=== PATIENT | female | born 1990 | race Caucasian/White ===

== ENCOUNTER → 2021-01-30 12:12 | Observation (INO) ==
[2021-01-30 09:46] LABS: Bacteria,Urine Few per hpf (None-Few); Bilirubin,Urine Negative (Negative); Blood,Urine Negative (Negative); Clarity,Urine Turbid (Clear); Color,Urine Yellow (Yellow); Glucose,Urine (UA) Normal (Normal); Ketones,Urine 10 mg/dL (Negative); Leukocyte Esterase,Urine Small (Negative); Mucus,Urine Many per lpf (None-Few); Nitrite,Urine Negative (Negative); Protein,Urine 100 mg/dL (Neg-Trace); Specific Gravity,Urine > 1.030 (1.010-1.025); Squamous Epithelial Cell,Urine Moderate per hpf (None-Few)
[2021-01-30 09:57] LABS: White Blood Count 8.8 K/mcL (4.3-11.1)
[2021-01-30 09:58] LABS: Basophils % 0.1 %; Eosinophils % 0.2 %; Hematocrit 37.4 % (35.3-44.9); Hemoglobin 11.7 g/dL (11.5-15.4); Immature Granulocytes % 0.3 % (0-4); Lymphocytes # 0.7 K/mcL (0.6-4.6); Mean Corpuscular HGB Conc 31.3 g/dL (31.6-35.5); Mean Corpuscular Hemoglobin 26.1 pg (28.0-33.3); Mean Corpuscular Volume 83.5 fL (83.0-100.0); Mean Platelet Volume 10.4 fL (9.4-12.4); Monocytes # 0.3 K/mcL (0.0-1.3); Monocytes % 3.2 %; Neutrophils # 7.8 K/mcL (1.6-8.9); Platelet Count 248 K/mcL (140-400); Red Blood Count 4.48 M/mcL (3.82-4.97); Red Cell Distribution Width 13.9 % (11.5-14.5); Segmented Neutrophils % 88.2 %
[~2021-01-30 12:12] MED LIST: Ringers Solution, Lactated 1,000 ML IVC ONE
== END | disposition home or self-care (01) ==
LOC: 1NENULAB
PROVIDERS: ADMIT Advanced Practice Midwife; ATTEND Advanced Practice Midwife

== ENCOUNTER 2021-02-27 10:23 | Inpatient (IN) ==
[2021-02-27] MEDS ORDERED: Famotidine 20 MG/2 ML VIAL IVP PRN (12:03)
[2021-02-27] MEDS ORDERED: Naloxone 0.4 MG/ML INJ IVP PRN (12:03)
[2021-02-27] MEDS ORDERED: Azithromycin 500 MG in 0.9 % Sodium Chloride 250 ML IVPB ONE (12:03)
[2021-02-27] MEDS ORDERED: *HR* Nalbuphine 10 MG/ML AMPUL IV PRN (12:03)
[2021-02-27] MEDS ORDERED: Metoclopramide 10 MG/2 ML VIAL IVP PRN (12:03)
[2021-02-27 12:15] LABS: Basophils % 0.1 %; Eosinophils # 0.1 K/mcL (0.0-0.6); Eosinophils % 0.6 %; Hematocrit 34.4 % (35.3-44.9); Hemoglobin 10.5 g/dL (11.5-15.4); Immature Granulocytes % 0.5 % (0-4); Lymphocytes # 2.1 K/mcL (0.6-4.6); Lymphocytes % 23.9 %; Mean Corpuscular HGB Conc 30.5 g/dL (31.6-35.5); Mean Corpuscular Hemoglobin 24.6 pg (28.0-33.3); Mean Corpuscular Volume 80.6 fL (83.0-100.0); Mean Platelet Volume 10.6 fL (9.4-12.4); Monocytes # 0.5 K/mcL (0.0-1.3); Monocytes % 5.4 %; Platelet Count 283 K/mcL (140-400); Red Blood Count 4.27 M/mcL (3.82-4.97); Red Cell Distribution Width 14.8 % (11.5-14.5); Segmented Neutrophils % 69.5 %; White Blood Count 8.6 K/mcL (4.3-11.1)
[2021-02-27] MEDS ORDERED: Oxytocin 20 units/ LR 1000 mL 20 UNIT/1,000 ML BAG IVC SCH (12:15)
[2021-02-27] MEDS: Ringers Solution, Lactated 1,000 ML IVC SCH ×2 (12:42→19:09)
[2021-02-27] MEDS ORDERED: Ringers Solution, Lactated 1,000 ML ONE (18:10)
[2021-02-27] MEDS ORDERED: EPHEDrine 50 MG/ML VIAL IVP PRN (18:16)
[2021-02-27] MEDS ORDERED: Epidural Premix (fent/bupiv) 110 ML EP SCH (18:30)
[2021-02-27] MEDS: Ondansetron 4 MG/2 ML VIAL IVP PRN (19:03)
[2021-02-27 23:04] LABS: Amphetamine Screen,Urine Negative ng/mL (Cutoff=1000); Barbiturate Screen,Urine Negative ng/mL (Cutoff=200); Benzodiazepines Screen,Urine Negative ng/mL (Cutoff=200); Cannabinoid Screen,Urine Negative ng/mL (Cutoff = 50); Cocaine Screen,Urine Negative ng/mL (Cutoff= 300); Opiate Screen,Urine Negative ng/mL (Cutoff=300); Phencyclidine Screen,Urine Negative ng/mL (Cutoff=25)
[2021-02-28] MEDS: Ondansetron 4 MG/2 ML VIAL IVP PRN (01:03)
[2021-02-28] MEDS ORDERED: Lanolin 7 G OINT...G. TP PRN (02:06)
[2021-02-28] MEDS ORDERED: Benzocaine/Menthol 56 GM AEROSOL SPRAY TP PRN (02:06)
[2021-02-28] MEDS ORDERED: Measles/Mumps/Rubella Vacc 0.5 ML VIAL SQ PRN (02:06)
[2021-02-28] MEDS ORDERED: Oxytocin 20 units/ LR 1000 mL 20 UNIT/1,000 ML BAG IVC SCH (02:06)
[2021-02-28] MEDS ORDERED: Sennosides 8.6 MG TABLET PO PRN (02:06)
[2021-02-28] MEDS ORDERED: Oxytocin 20 units/ LR 1000 mL 20 UNIT/1,000 ML BAG IVC ONE (02:06)
[2021-02-28] MEDS ORDERED: Rho Immune Globulin 1,500 UNIT SYRINGE IM PRN (02:06)
[2021-02-28] MEDS: Ibuprofen 600 MG TABLET PO SCH ×3 (02:15→21:35)
[2021-02-28] MEDS ORDERED: Prenatal Vit/FA 1 EACH TABLET PO SCH (08:00)
[2021-02-28] MEDS: Acetaminophen 325 MG TABLET PO SCH ×3 (08:05→21:34)
[2021-02-28 08:35] LABS: Eosinophils % 0.4 %; Hematocrit 31.1 % (35.3-44.9); Hemoglobin 9.7 g/dL (11.5-15.4); Immature Granulocytes % 0.5 % (0-4); Lymphocytes # 1.4 K/mcL (0.6-4.6); Lymphocytes % 13.5 %; Mean Corpuscular HGB Conc 31.2 g/dL (31.6-35.5); Mean Corpuscular Hemoglobin 25.2 pg (28.0-33.3); Mean Corpuscular Volume 80.8 fL (83.0-100.0); Mean Platelet Volume 10.9 fL (9.4-12.4); Monocytes # 0.5 K/mcL (0.0-1.3); Monocytes % 4.6 %; Neutrophils # 8.2 K/mcL (1.6-8.9); Platelet Count 245 K/mcL (140-400); Red Blood Count 3.85 M/mcL (3.82-4.97); Red Cell Distribution Width 14.7 % (11.5-14.5); White Blood Count 10.1 K/mcL (4.3-11.1)
[2021-02-28 19:56] VITALS: BP 126/72
== END 2021-02-28 21:35 | disposition home or self-care (01) | DRG 807 ==
LOC: 1NENULAB → 1NENUOBS 02-28 02:06
PROVIDERS: ADMIT Student in an Organized Health Care Education/Training Program; ATTEND Student in an Organized Health Care Education/Training Program